=== PATIENT | male | born 1945 | race Caucasian/White ===

== ENCOUNTER → 2017-02-11 | Outpatient (CLI) | payer MEDICARE ==
[~2017-02-11] MED LIST: ACET325T26 PR; ACET500T76 PO; AMIO400T4 PO; ASPI-515 PO; ATOR80TA75 PO; BISA-49 PO; BISA10SU54 PR; CARV-39 PO; CARV3.1212 PO; CHLO25TA PO; CHOL20003 PO; DEXT4TAB PO; DOCU-30 PO; FURO-93 PO; GABA100C8 PO; HYDR-3307 PO; INSU100C5 SQ-INSULIN; INSU100I18 SQ; MAGN2400 PO; NITR0.4T8 SL; ONDA4TAB7 PO; OXYC5TAB3 PO; PANT40TA3 PO; PROC5TAB40 PO; RAMI10CA PO; WARF2TAB PO
== END | disposition home or self-care (01) ==
LOC: CFH 08:57
PROVIDERS: ATTEND Physician Assistant Surgical
DX: M48.55XA Collapsed vertebra, not elsewhere classified, thoracolumbar region, initial encounter for fracture (principal); M47.897 Other spondylosis, lumbosacral region; M51.27 Other intervertebral disc displacement, lumbosacral region; Z98.890 Other specified postprocedural states
CPT/HCPCS: 72110; 72131

== ENCOUNTER 2017-07-23 11:27 | Inpatient (IN) | payer MEDICARE ==
[~2017-07-23] VITALS: Ht 170.2 cm; Wt 96.8 kg
[~2017-07-23 11:27] MED LIST changes: +ACET500T71 PO; -ACET500T76 PO; +ATOR-2 PO; -ATOR80TA75 PO; +CHOL2000 PO; -CHOL20003 PO; +DOCU-131 PO; -DOCU-30 PO; +GABA-826 PO; -GABA100C8 PO; +NITR0.4T28 SL; -NITR0.4T8 SL
[2017-07-23] MEDS ORDERED: SODIUM CHLORIDE FLUSH 10ML SYR IVF ONE (11:30)
[2017-07-23 11:51] LABS: HEMATOCRIT 39.4 % (39.2-51.8); HEMOGLOBIN 12.6 g/dL (13.7-18.0); WHITE BLOOD COUNT 12.2 x10^3/uL (3.4-10)
[2017-07-23 12:02] LABS: ASPARTATE AMINO TRANSFERASE 22 U/L (15-37); BLOOD UREA NITROGEN 22 mg/dL (7-18)
[2017-07-23 12:11] LABS: IS PT STATUS REG ER OR PRE ER? YES
[2017-07-23] MEDS ORDERED: AMIO200T42 PO (13:26)
[2017-07-23] MEDS ORDERED: APIX5TAB PO (13:26)
[2017-07-23] MEDS ORDERED: AMIODARONE 900 MG in DEXTROSE 5% 482 ML IV PRN (13:30)
[2017-07-23] MEDS ORDERED: AMIODARONE 150 MG in DEXTROSE 5% 100 ML IV ONE (13:30)
[2017-07-23] MEDS ORDERED: FUROSEMIDE 20 MG/2 ML IV ONE (14:00)
[2017-07-23] MEDS ORDERED: FILTER 0.22 MICRON IV ONE (14:00)
[2017-07-23] MEDS ORDERED: ONDANSETRON 2MG/ML, 2ML IVPush PRN (14:00)
[2017-07-23] MEDS ORDERED: MORPHINE SULFATE 4 MG/ML, 1ML IVPush PRN (14:00)
[2017-07-23] MEDS ORDERED: TAMSULOSIN 0.4 MG CAP.ER.24H PO ONE (14:00)
[2017-07-23 14:10] VITALS: BP 132/83
[2017-07-23] MEDS: ENOXAPARIN 100 MG/ML SQ SCH (16:53)
[2017-07-23 19:04] VITALS: BP 103/65
[2017-07-23] MEDS ORDERED: TAMS0.4C2 PO (19:04)
[2017-07-23] MEDS ORDERED: PREG75CA PO (19:04)
[2017-07-23] MEDS ORDERED: FINA5TAB4 PO (19:04)
[2017-07-23] MEDS ORDERED: GABA300C10 PO (19:04)
[2017-07-23] MEDS ORDERED: QUET25TA PO (19:04)
[2017-07-23] MEDS ORDERED: ALPR0.254 PO (19:04)
[2017-07-23] MEDS: ATORVASTATIN 80 MG TABLET PO SCH (20:47)
[2017-07-23] MEDS: CARVEDILOL 3.125 MG TABLET PO SCH (20:47)
[2017-07-23] MEDS: GABAPENTIN 100 MG CAPSULE PO SCH (22:23)
[2017-07-23] MEDS: HYDROcodone/APAP 5/325 TABLET PO PRN (22:24)
[2017-07-24 00:51] VITALS: BP 94/61
[2017-07-24] MEDS: ENOXAPARIN 100 MG/ML SQ SCH ×3 (01:13→23:42)
[2017-07-24] MEDS ORDERED: SODIUM CHLORIDE 0.9%, 250ML IVBOLUS ONE (01:30)
[2017-07-24] MEDS: HYDROcodone/APAP 5/325 TABLET PO PRN ×2 (04:38→23:31)
[2017-07-24 05:49] LABS: HEMATOCRIT 35.7 % (39.2-51.8); HEMOGLOBIN 11.3 g/dL (13.7-18.0); WHITE BLOOD COUNT 9.1 x10^3/uL (3.4-10)
[2017-07-24 06:55] VITALS: BP 129/78
[2017-07-24 06:55] LABS: ASPARTATE AMINO TRANSFERASE 28 U/L (15-37); BLOOD UREA NITROGEN 23 mg/dL (7-18)
[2017-07-24] MEDS ORDERED: POTASSIUM CHLORIDE 20 MEQ TAB.ER.PRT PO ONE (08:30)
[2017-07-24 08:41] VITALS: BP 111/76
[2017-07-24] MEDS ORDERED: REGADENOSON 0.4 MG/5 ML SYRINGE ONE (08:41)
[2017-07-24] MEDS ORDERED: LEUP3.75 INJ (08:49)
[2017-07-24] MEDS: ASPIRIN 81 MG TABLET EC PO SCH (08:50)
[2017-07-24] MEDS: FINASTERIDE 5 MG TABLET PO SCH (08:50)
[2017-07-24] MEDS: GABAPENTIN 100 MG CAPSULE PO SCH ×2 (08:50→20:11)
[2017-07-24] MEDS: ACETAMINOPHEN 325 MG TABLET PO PRN ×2 (10:32→18:32)
[2017-07-24] MEDS: AMIODARONE 200 MG TABLET PO SCH ×2 (10:32→20:12)
[2017-07-24] MEDS: CARVEDILOL 3.125 MG TABLET PO SCH ×2 (10:33→20:48)
[2017-07-24 13:22] VITALS: BP 120/74
[2017-07-24 15:29] LABS: PATH.CAST-FLAG NOT PRESENT; SPERM-FLAG NOT PRESENT; SRC-FLAG NOT PRESENT; XTAL-FLAG NOT PRESENT; YLC-FLAG NOT PRESENT
[2017-07-24] MEDS: CEFTRIAXONE PMX 2GM/50ML 50 ML IV SCH (18:16)
[2017-07-24 19:49] VITALS: BP 116/74
[2017-07-24] MEDS: ATORVASTATIN 80 MG TABLET PO SCH (20:11)
[2017-07-24] MEDS ORDERED: DIPHENHYDRAMINE 25 MG CAPSULE ONE (23:39)
[2017-07-25] MEDS ORDERED: DIPHENHYDRAMINE 25 MG CAPSULE PO ONE
[2017-07-25 01:31] VITALS: BP 112/66
[2017-07-25] MEDS: HYDROcodone/APAP 5/325 TABLET PO PRN ×2 (06:00→23:10)
[2017-07-25 07:26] VITALS: BP 117/70
[2017-07-25] MEDS: CARVEDILOL 3.125 MG TABLET PO SCH ×2 (08:48→19:38)
[2017-07-25] MEDS: ASPIRIN 81 MG TABLET EC PO SCH (08:48)
[2017-07-25] MEDS: FINASTERIDE 5 MG TABLET PO SCH (08:49)
[2017-07-25] MEDS: AMIODARONE 200 MG TABLET PO SCH ×2 (08:49→19:36)
[2017-07-25] MEDS: GABAPENTIN 100 MG CAPSULE PO SCH ×2 (08:49→19:37)
[2017-07-25 13:31] VITALS: BP 122/70
[2017-07-25 13:37] LABS: HEMATOCRIT 37.9 % (39.2-51.8); HEMOGLOBIN 12.1 g/dL (13.7-18.0)
[2017-07-25] MEDS: ENOXAPARIN 100 MG/ML SQ SCH (14:59)
[2017-07-25] MEDS: ACETAMINOPHEN 325 MG TABLET PO PRN ×2 (14:59→19:38)
[2017-07-25] MEDS: CEFTRIAXONE PMX 2GM/50ML 50 ML IV SCH (18:05)
[2017-07-25 18:55] VITALS: BP 107/64
[2017-07-25] MEDS: ATORVASTATIN 80 MG TABLET PO SCH (19:37)
[2017-07-25] MEDS: DIPHENHYDRAMINE 25 MG CAPSULE PO PRN (19:38)
[2017-07-25] MEDS ORDERED: MORPHINE SULFATE 4 MG/ML, 1ML IVPush PRN (21:00)
[2017-07-25] MEDS ORDERED: ONDANSETRON 2MG/ML, 2ML IVPush PRN (21:00)
[2017-07-26] MEDS: ENOXAPARIN 100 MG/ML SQ SCH ×2 (02:29→13:08)
[2017-07-26] MEDS: DIPHENHYDRAMINE 25 MG CAPSULE PO PRN ×3 (02:29→22:41)
[2017-07-26 06:59] VITALS: BP 113/72
[2017-07-26] MEDS: ASPIRIN 81 MG TABLET EC PO SCH (08:10)
[2017-07-26] MEDS: CARVEDILOL 3.125 MG TABLET PO SCH ×2 (08:10→19:31)
[2017-07-26] MEDS: FINASTERIDE 5 MG TABLET PO SCH (08:10)
[2017-07-26] MEDS: GABAPENTIN 100 MG CAPSULE PO SCH ×2 (08:10→19:30)
[2017-07-26] MEDS: AMIODARONE 200 MG TABLET PO SCH ×2 (08:10→19:30)
[2017-07-26 13:23] VITALS: BP 107/67
[2017-07-26] MEDS ORDERED: LORATADINE 10 MG TABLET PO PRN (14:30)
[2017-07-26] MEDS ORDERED: POLYETHYLENE GLYCOL 17 GM PACKET PO ONE (14:30)
[2017-07-26] MEDS: WARFARIN 7.5 MG TABLET PO-COUM SCH (17:07)
[2017-07-26] MEDS: CIPROFLOXACIN 500 MG TABLET PO SCH (17:07)
[2017-07-26 18:49] VITALS: BP 119/64
[2017-07-26] MEDS: ATORVASTATIN 80 MG TABLET PO SCH (19:30)
[2017-07-27 02:00] VITALS: BP 124/70
[2017-07-27] MEDS: ENOXAPARIN 100 MG/ML SQ SCH ×2 (02:00→14:17)
[2017-07-27] MEDS: CIPROFLOXACIN 500 MG TABLET PO SCH ×2 (06:07→17:29)
[2017-07-27 06:45] VITALS: BP 107/69
[2017-07-27] MEDS: ASPIRIN 81 MG TABLET EC PO SCH (08:08)
[2017-07-27] MEDS: AMIODARONE 200 MG TABLET PO SCH ×2 (08:08→23:11)
[2017-07-27] MEDS: FINASTERIDE 5 MG TABLET PO SCH (08:08)
[2017-07-27] MEDS: GABAPENTIN 100 MG CAPSULE PO SCH ×2 (08:08→23:11)
[2017-07-27] MEDS: CARVEDILOL 3.125 MG TABLET PO SCH ×2 (08:08→23:11)
[2017-07-27] MEDS: DIPHENHYDRAMINE 25 MG CAPSULE PO PRN ×2 (12:19→23:23)
[2017-07-27 17:29] VITALS: BP 138/85
[2017-07-27] MEDS: WARFARIN 7.5 MG TABLET PO-COUM SCH (17:29)
[2017-07-27 18:42] VITALS: BP 114/73
[2017-07-27] MEDS: ATORVASTATIN 80 MG TABLET PO SCH (23:11)
[2017-07-28 02:00] VITALS: BP 106/71
[2017-07-28] MEDS: CIPROFLOXACIN 500 MG TABLET PO SCH ×2 (05:45→17:50)
[2017-07-28] MEDS: ENOXAPARIN 100 MG/ML SQ SCH ×2 (05:45→13:52)
[2017-07-28] MEDS: AMIODARONE 200 MG TABLET PO SCH ×2 (08:35→20:17)
[2017-07-28] MEDS: ASPIRIN 81 MG TABLET EC PO SCH (08:36)
[2017-07-28] MEDS: FINASTERIDE 5 MG TABLET PO SCH (08:36)
[2017-07-28] MEDS: CARVEDILOL 3.125 MG TABLET PO SCH ×2 (08:36→20:17)
[2017-07-28] MEDS: GABAPENTIN 100 MG CAPSULE PO SCH ×2 (08:36→20:17)
[2017-07-28 09:30] VITALS: BP 109/69
[2017-07-28] MEDS: DIPHENHYDRAMINE 25 MG CAPSULE PO PRN ×2 (10:40→20:18)
[2017-07-28 13:15] VITALS: BP 125/67
[2017-07-28] MEDS: WARFARIN 7.5 MG TABLET PO-COUM SCH (17:50)
[2017-07-28 20:00] VITALS: BP 113/68
[2017-07-28] MEDS: ATORVASTATIN 80 MG TABLET PO SCH (20:17)
[2017-07-29 02:05] VITALS: BP 105/67
[2017-07-29] MEDS: ENOXAPARIN 100 MG/ML SQ SCH (05:24)
[2017-07-29] MEDS: CIPROFLOXACIN 500 MG TABLET PO SCH (05:25)
[2017-07-29 07:44] VITALS: BP 136/76
[2017-07-29] MEDS: CARVEDILOL 3.125 MG TABLET PO SCH (10:34)
[2017-07-29] MEDS: FINASTERIDE 5 MG TABLET PO SCH (10:34)
[2017-07-29] MEDS: GABAPENTIN 100 MG CAPSULE PO SCH (10:34)
[2017-07-29] MEDS: AMIODARONE 200 MG TABLET PO SCH (10:34)
[2017-07-29] MEDS: ASPIRIN 81 MG TABLET EC PO SCH (10:34)
[2017-07-29] MEDS: DIPHENHYDRAMINE 25 MG CAPSULE PO PRN (10:34)
[2017-07-29] MEDS ORDERED: WARF7.5T PO-COUM (12:27)
[2017-07-29] MEDS ORDERED: DIPH25CA61 PO (12:27)
[2017-07-29] MEDS ORDERED: CIPR500T87 PO (12:27)
[2017-07-29] MEDS ORDERED: POTA10TA11 PO (12:27)
[2017-07-29] MEDS ORDERED: AMIO200T42 PO (12:33)
[2017-07-29] MEDS ORDERED: PROC5TAB40 PO (12:45)
[2017-07-29 13:56] VITALS: BP 95/61
== END 2017-07-29 16:55 | DRG 64 ==
LOC: SUATTDRO 12:43 → ED 13:04 → EDIP 13:42 → 5SO 15:21
PROVIDERS: ADMIT Internal Medicine; ATTEND Internal Medicine
DX: I63.9 Cerebral infarction, unspecified (principal); I50.43 Acute on chronic combined systolic (congestive) and diastolic (congestive) heart failure; I47.2 Ventricular tachycardia; D68.69 Other thrombophilia; E11.22 Type 2 diabetes mellitus with diabetic chronic kidney disease; E11.51 Type 2 diabetes mellitus with diabetic peripheral angiopathy without gangrene; N18.3 Chronic kidney disease, stage 3 (moderate); I48.0 Paroxysmal atrial fibrillation; I13.0 Hypertensive heart and chronic kidney disease with heart failure and stage 1 through stage 4 chronic kidney disease, or unspecified chronic kidney disease; N39.0 Urinary tract infection, site not specified; H54.62 Unqualified visual loss, left eye, normal vision right eye; I49.5 Sick sinus syndrome; N40.0 Benign prostatic hyperplasia without lower urinary tract symptoms; K59.00 Constipation, unspecified; J44.9 Chronic obstructive pulmonary disease, unspecified; B96.89 Other specified bacterial agents as the cause of diseases classified elsewhere; E78.5 Hyperlipidemia, unspecified; I25.10 Atherosclerotic heart disease of native coronary artery without angina pectoris; Z95.3 Presence of xenogenic heart valve; Z95.1 Presence of aortocoronary bypass graft; Z87.891 Personal history of nicotine dependence; Z95.0 Presence of cardiac pacemaker; Z86.79 Personal history of other diseases of the circulatory system; Z86.73 Personal history of transient ischemic attack (TIA), and cerebral infarction without residual deficits; Z79.01 Long term (current) use of anticoagulants; Z79.899 Other long term (current) drug therapy; I73.9 Peripheral vascular disease, unspecified
CPT/HCPCS: 36415; 70450; 71010; 78452; 80053; 81001; 83735; 84100; 84439; 84443; 84481; 84484; 85025; 85610; 87077; 87086; 87186; 93005; 93017; 93306; 93880; 96365; J0696; J1650; J2785; A9502; C9898; J0282; J1940; J7050; J7060; Q0163